=== PATIENT | female | born 1980 | race Caucasian/White ===

== ENCOUNTER 2020-12-08 18:38 | Emergency (ER) | payer MEDICARE, OTHER ==
[~2020-12-08 18:38] MED LIST: ALL DAY ALLERGY10 M2 PO; ATARAX25 MG PO; BACTRIM 400-801 EACH PO; BENTYL10 MG PO; BUMEX1 MG PO; BUSPIRONE HCL7.5 MG PO; COLACE100 MG PO; COUMADIN10 MG PO; DELSYM30 MG/5 ML PO; DEPAKOTE ER250 MG PO; DEPAKOTE125 MG PO; DULCOLAX5 MG PO; FLEXERIL10 MG PO; FLORASTOR250 MG PO; GABAPENTIN600 MG PO; HYDROCODON-ACE1 EAC4 PO; IMODIUM2 MG PO; LACTULOSE10 G/15 ML PO; LAMICTAL100 MG PO; LOTRISONE CREAM15 GM TOP; MELATONIN5 M2 PO; MELOXICAM15 MG PO; MUCINEX 600MG600 MG PO; POLY-IRON150 MG PO; PRILOSEC20 MG PO; SEROQUEL 100MG100 MG PO; TOPROL XL 25MG25 MG PO; UROCIT-K10 MEQ PO; VIACTIV 650 MG1 EACH PO; WELLBUTRIN XL150 MG PO; XANAX0.5 MG PO; ZOFRAN4 MG PO
[2020-12-08 19:36] LABS: BILIRUBIN NEGATIVE (NEGATIVE); BLOOD TRACE-INTACT Ery/uL (NEGATIVE); CLARITY CLEAR (CLEAR); COLOR YELLOW (YELLOW); GLUCOSE (U) NORMAL (NORMAL); LEUKOCYTES 3+ Leu/uL (NEGATIVE); NITRITE POSITIVE (NEGATIVE); PROTEIN NEGATIVE (NEGATIVE); UROBILINOGEN 0.2 mg/dL (0.2-1.0)
[2020-12-08 19:43] LABS: AMPHETAMINES NEGATIVE (NEGATIVE); BARBITURATES NEGATIVE (NEGATIVE); ECSTASY (MDMA) NEGATIVE (NEGATIVE); HCG (URINE) SCREEN NEGATIVE (NEGATIVE); MARIJUANA (THC) NEGATIVE (NEGATIVE); METHADONE NEGATIVE (NEGATIVE); OPIATES POSITIVE (NEGATIVE); OXYCODONE NEGATIVE (NEGATIVE)
[2020-12-08 19:53] LABS: BACTERIA 4+; URINARY RBC RARE
[2020-12-08 20:13] LABS: BASOPHIL 0.8 % (0-2); EOSINOPHIL 1.7 % (0-5); HCT 42.7 % (37.0-47.0); HGB 13.3 g/dl (12.5-16.0); MCH 28.1 pg (25.0-31.0); MCHC 31.1 g/dL (32.0-36.0); MCV 90.3 fL (78.0-100.0); MONOCYTE 11.9 % (0-12); MPV 8.9 fL (6.0-9.5); NEUTROPHIL 61.3 % (41-80); NRBC 0; PLT 263 K/uL (150-400); RBC 4.73 M/uL (4.20-5.40); RDW 15.1 % (11.5-14.0); WBC 6.4 K/uL (4.0-10.5)
[2020-12-08 20:31] LABS: INFLUENZA A NAA NEGATIVE (NEGATIVE)
[2020-12-08 20:32] LABS: ACETAMINOPHEN (TYLENOL) < 2.0 ug/mL (10.0-30.0); ALBUMIN 3.2 g/dL (3.4-5.0); ALKALINE PHOSHATASE 63 U/L (46-116); ALT 17 U/L (14-59); AST 14 U/L (15-37); BILIRUBIN - TOTAL 0.3 mg/dL (0.2-1.0); BUN 10 mg/dL (7-18); BUN/CREAT RATIO (CALC) 18.2 RATIO; CHLORIDE 102 mmol/L (98-107); CO2 (BICARBONATE) 26 mmol/L (21-32); CREATININE 0.55 mg/dL (0.51-0.95); GLOBULIN (CALCULATION) 4.2 g/dL; GLUCOSE 106 mg/dL (74-106); POTASSIUM 3.9 mmol/L (3.5-5.1); TOTAL PROTEIN 7.4 g/dL (6.4-8.2)
[2020-12-08 20:33] LABS: CORONAVIRUS 2019 SARS-COV-2 POSITIVE (NEGATIVE)
[2020-12-08] MEDS ORDERED: CEPHALEXIN500 M1 PO (22:27)
== END 2020-12-09 00:05 | disposition home or self-care (01) ==
LOC: FER 18:38
PROVIDERS: Student in an Organized Health Care Education/Training Program
DX: F29 Unspecified psychosis not due to a substance or known physiological condition (principal); N39.0 Urinary tract infection, site not specified; U07.1 COVID-19; J44.9 Chronic obstructive pulmonary disease, unspecified; Z86.73 Personal history of transient ischemic attack (TIA), and cerebral infarction without residual deficits; Z88.8 Allergy status to other drugs, medicaments and biological substances
CPT/HCPCS: 36415; 80053; 80305; 81001; 84703; 85025; 87076; 87088; 87186; 93005; 96372; G0480; J0696; U0002

== ENCOUNTER 2021-01-12 10:23 | Emergency (ER) | payer MEDICARE, OTHER ==
[~2021-01-12 10:23] MED LIST changes: +CEPHALEXIN500 M1 PO
== END 2021-01-12 12:58 | disposition home or self-care (01) ==
LOC: FER 10:23
DX: T18.9XXA Foreign body of alimentary tract, part unspecified, initial encounter (principal); I11.0 Hypertensive heart disease with heart failure; I50.9 Heart failure, unspecified; I48.91 Unspecified atrial fibrillation; J44.9 Chronic obstructive pulmonary disease, unspecified; E66.01 Morbid (severe) obesity due to excess calories; Z86.718 Personal history of other venous thrombosis and embolism; Z87.19 Personal history of other diseases of the digestive system
CPT/HCPCS: 71045

== ENCOUNTER 2021-02-10 14:58 | Emergency (ER) | payer MEDICARE, OTHER ==
[2021-02-10 15:31] LABS: EOSINOPHIL 4.1 % (0-5); HCT 47.2 % (37.0-47.0); LYMPHOCYTE 29.6 % (15-48); MCH 29.8 pg (25.0-31.0); MCHC 31.8 g/dL (32.0-36.0); MCV 93.8 fL (78.0-100.0); MONOCYTE 10.8 % (0-12); MPV 9.5 fL (6.0-9.5); NEUTROPHIL 54.3 % (41-80); NRBC 0; PLT 196 K/uL (150-400); RBC 5.03 M/uL (4.20-5.40); RDW 18.6 % (11.5-14.0); WBC 5.2 K/uL (4.0-10.5)
[2021-02-10 15:41] LABS: INR 1.7 (0.9-1.2); PTT 27.1 SECONDS (22.2-34.7)
[2021-02-10 15:51] LABS: ALBUMIN 3.2 g/dL (3.4-5.0); BILIRUBIN - TOTAL 0.4 mg/dL (0.2-1.0); BUN/CREAT RATIO (CALC) 23.2 RATIO; CREATININE 0.56 mg/dL (0.51-0.95); GLOBULIN (CALCULATION) 4.2 g/dL; MAGNESIUM 2.1 mg/dL (1.8-2.4); POTASSIUM 4.3 mmol/L (3.5-5.1); TOTAL PROTEIN 7.4 g/dL (6.4-8.2)
[2021-02-10 16:26] LABS: CKMB <0.5 ng/mL (0.0-3.6); PRO-BNP 46 pg/mL (<125)
== END 2021-02-10 20:36 | disposition home or self-care (01) ==
LOC: FER 14:58
PROVIDERS: Emergency Medicine
DX: R07.89 Other chest pain (principal); E66.01 Morbid (severe) obesity due to excess calories; I45.2 Bifascicular block; I87.8 Other specified disorders of veins; R11.0 Nausea; I48.91 Unspecified atrial fibrillation; I50.9 Heart failure, unspecified; Z87.19 Personal history of other diseases of the digestive system; Z86.718 Personal history of other venous thrombosis and embolism; Z79.02 Long term (current) use of antithrombotics/antiplatelets; Z79.01 Long term (current) use of anticoagulants; Z88.8 Allergy status to other drugs, medicaments and biological substances
CPT/HCPCS: 36415; 36600; 71045; 80053; 82553; 82803; 83735; 83874; 83880; 84484; 85025; 85379; 85610; 85730

== ENCOUNTER 2021-05-24 12:29 | Emergency (ER) | payer MEDICARE, OTHER ==
[2021-05-24 13:13] LABS: BASOPHIL 0.7 % (0-2); EOSINOPHIL 1.4 % (0-5); HGB 14.9 g/dl (12.5-16.0); MCH 30.7 pg (25.0-31.0); MONOCYTE 8.3 % (0-12); MPV 9.3 fL (6.0-9.5); NEUTROPHIL 59.4 % (41-80); NRBC 0.5; PLT 136 K/uL (150-400); RBC 4.85 M/uL (4.20-5.40); RDW 15.5 % (11.5-14.0); WBC 4.2 K/uL (4.0-10.5)
[2021-05-24 13:44] LABS: INR 1.85 (0.9-1.2); PROTHROMBIN TIME 20.5 SECONDS (11.8-13.4); PTT 24.2 SECONDS (24.4-34.7)
[2021-05-24 13:56] LABS: ALBUMIN 2.8 g/dL (3.4-5.0); BILIRUBIN - TOTAL 0.4 mg/dL (0.2-1.0); CREATININE 0.71 mg/dL (0.51-0.95); GLOBULIN (CALCULATION) 3.6 g/dL; POTASSIUM 5.9 mmol/L (3.5-5.1); TOTAL PROTEIN 6.4 g/dL (6.4-8.2)
[2021-05-24 13:59] LABS: CKMB 0.6 ng/mL (0.0-3.6)
[2021-05-24 14:07] LABS: BILIRUBIN 1+ mg/dL (NEGATIVE); BLOOD 1+ Ery/uL (NEGATIVE); COLOR YELLOW (YELLOW); GLUCOSE (U) NORMAL (NORMAL); LEUKOCYTES 3+ Leu/uL (NEGATIVE); NITRITE POSITIVE (NEGATIVE); PROTEIN TRACE (LOW) mg/dL (NEGATIVE); SPECIFIC GRAVITY 1.015 (1.001-1.030); pH 6.5 (5.0-9.0)
[2021-05-24 14:12] LABS: CLARITY HAZY (CLEAR)
[2021-05-24 14:24] LABS: URINARY WBC TNTC
[2021-05-24 14:25] LABS: BACTERIA 2+
== END 2021-05-24 23:05 | disposition other institution (70) ==
LOC: FER 12:29
PROVIDERS: Emergency Medicine
DX: I21.4 Non-ST elevation (NSTEMI) myocardial infarction (principal); J44.9 Chronic obstructive pulmonary disease, unspecified; R06.89 Other abnormalities of breathing; E66.01 Morbid (severe) obesity due to excess calories; N39.0 Urinary tract infection, site not specified; R41.82 Altered mental status, unspecified; I45.10 Unspecified right bundle-branch block; Z86.718 Personal history of other venous thrombosis and embolism; Z86.73 Personal history of transient ischemic attack (TIA), and cerebral infarction without residual deficits; Z20.822 Contact with and (suspected) exposure to COVID-19
CPT/HCPCS: 36415; 36600; 70450; 71045; 80053; 81001; 82553; 82803; 83605; 84145; 84443; 84484; 85025; 85610; 85730; 87040; 87088; 87186; 93005; 94660; 94762; J1940; J1956; U0002